=== PATIENT | female | born 1985 | race Caucasian/White ===

== ENCOUNTER 2017-11-22 18:12 | Observation (INO) | payer OTHER ==
[~2017-11-22] VITALS: Ht 154.9 cm; Wt 80.1 kg
[~2017-11-22 18:12] MED LIST: PNV1TABL54 PO
[2017-11-22 22:31] VITALS: BP 112/56
== END 2017-11-22 22:10 | disposition home or self-care (01) ==
LOC: 4S 18:12
PROVIDERS: ADMIT Obstetrics & Gynecology; ATTEND Obstetrics & Gynecology
DX: O48.0 Post-term pregnancy (principal); O26.853 Spotting complicating pregnancy, third trimester; O26.893 Other specified pregnancy related conditions, third trimester; R10.2 Pelvic and perineal pain; Z3A.40 40 weeks gestation of pregnancy
CPT/HCPCS: 59025; G0378

== ENCOUNTER 2017-11-28 17:12 | Inpatient (IN) | payer OTHER ==
[~2017-11-28] VITALS: Ht 154.9 cm; Wt 80.3 kg
[2017-11-28] MEDS ORDERED: RINGERS SOLUTION,LACTATED 1,000 ML IV PRN (17:13)
[2017-11-28] MEDS ORDERED: OXYTOCIN 30 UNITS/LACT RINGERS 500 ML IV ONE (17:13)
[2017-11-28] MEDS ORDERED: CITRIC ACID/SODIUM CITRATE 30 ML SOLUTION UDCUP PO PRN (17:15)
[2017-11-28] MEDS ORDERED: FentaNYL CITRATE-PF 100 MCG/2 ML VIAL IVP PRN (17:15)
[2017-11-28] MEDS ORDERED: METHYLERGONOVINE MALEATE 0.2 MG/ML VIAL IM PRN (17:15)
[2017-11-28] MEDS ORDERED: LIDOCAINE/PF 1% 30 ML VIAL INJ PRN (17:15)
[2017-11-28] MEDS ORDERED: METOCLOPRAMIDE HCL 5 MG/ML 2 ML VIAL IVP PRN (17:15)
[2017-11-28 18:06] VITALS: BP 114/66
[2017-11-28] MEDS: RINGERS SOLUTION,LACTATED 1,000 ML IV SCH (18:13)
[2017-11-28 18:39] LABS: BASOPHILS % (AUTO) 0.5 % (0.0-2.0); EOSINOPHILS % (AUTO) 0.7 % (1.0-6.0); HEMATOCRIT 39.6 % (36-46); HEMOGLOBIN 13.1 g/dL (12.0-16.0); LYMPHOCYTES # (AUTO) 2.2 K/uL (1.0-4.8); LYMPHOCYTES % (AUTO) 17.4 % (22.0-44.0); MEAN CORPUSCULAR HEMOGLOBIN 28.3 pg (26.0-34.0); MEAN CORPUSCULAR HGB CONC 33.2 G/dL (31.0-37.0); MEAN CORPUSCULAR VOLUME 85 fL (80-100); MONOCYTES # (AUTO) 0.8 K/uL (0.1-1.0); MONOCYTES % (AUTO) 6.6 % (2.0-9.0); NEUTROPHILS # (AUTO) 9.7 K/uL (1.8-7.7); NEUTROPHILS % (AUTO) 74.8 % (40.0-70.0); PLATELET COUNT (AUTO) 319 K/uL (150-450); RED BLOOD CELL COUNT(AUTO) 4.65 MIL/uL (4.00-5.20); RED CELL DISTRIBUTION WIDTH 14.5 % (11.5-14.5)
[2017-11-28] MEDS ORDERED: OXYTOCIN 30 UNITS/LACT RINGERS 500 ML IV PRN (18:55)
[2017-11-28] MEDS ORDERED: OXYGEN THERAPY IH SCH (20:00)
[2017-11-29] MEDS: RINGERS SOLUTION,LACTATED 1,000 ML IV SCH ×3 (00:36→11:29)
[2017-11-29] MEDS ORDERED: LIDOCAINE/PF 2% 5 ML VIAL ONE (09:36)
[2017-11-29] MEDS ORDERED: ROPIVACAINE HCL/PF 0.2% 100 ML ED ONE (09:36)
[2017-11-29] MEDS ORDERED: ROPIVACAINE HCL/PF 0.2% 100 ML ED PRN (09:54)
[2017-11-29] MEDS ORDERED: DiphenhydrAMINE HCL 50 MG/ML VIAL IVP PRN (10:00)
[2017-11-29] MEDS ORDERED: NALBUPHINE HCL 10 MG/ML VIAL IVP PRN (10:00)
[2017-11-29] MEDS ORDERED: ONDANSETRON HCL 4 MG/2 ML VIAL IVP PRN (10:00)
[2017-11-29] MEDS ORDERED: CeFAZolin 2 GM/DEXTROSE 50 ML IV ONE (14:30)
[2017-11-29] MEDS ORDERED: BENZOCAINE 20%/MENTHOL 56 GM SPRAY CANISTER TP PRN (14:45)
[2017-11-29] MEDS ORDERED: LANOLIN 7 GM OINTMENT TP PRN (14:45)
[2017-11-29] MEDS ORDERED: GLYCERIN/WITCH HAZEL LEAF 40 PADS JAR TP PRN (14:45)
[2017-11-29] MEDS ORDERED: ACETAMINOPHEN/CODEINE 300-30 MG TABLET PO PRN ×2 (14:45)
[2017-11-29] MEDS: IBUPROFEN 800 MG TABLET PO SCH ×2 (16:11→21:22)
[2017-11-29] MEDS: MAGNESIUM HYDROXIDE SUSPENSION 30 ML UDCUP PO SCH (21:22)
[2017-11-30] MEDS: IBUPROFEN 800 MG TABLET PO SCH ×2 (04:02→09:25)
[2017-11-30] MEDS: MAGNESIUM HYDROXIDE SUSPENSION 30 ML UDCUP PO SCH (09:25)
[2017-11-30] MEDS ORDERED: IBUP-2071 PO (09:45)
[2017-11-30] MEDS ORDERED: SENNA/DOCUSATE SODIUM 187-50 MG TABLET ONE (11:28)
[2017-11-30] MEDS ORDERED: SENNA/DOCUSATE SODIUM 187-50 MG TABLET PO ONE (11:30)
== END 2017-11-30 11:30 | disposition home or self-care (01) | DRG 775 ==
LOC: 4S 17:12 → OBSVTOIN 17:12
PROVIDERS: ADMIT Obstetrics & Gynecology; ATTEND Obstetrics & Gynecology
PROC: 10D07Z6 Extraction of Products of Conception, Vacuum, Via Natural or Artificial Opening (ICD-10-PCS; principal; 2017-11-29)
PROC: 0W8NXZZ Division of Female Perineum, External Approach (ICD-10-PCS; 2017-11-29)
PROC: 3E0R3BZ Introduction of Anesthetic Agent into Spinal Canal, Percutaneous Approach (ICD-10-PCS; 2017-11-29)
PROC: 00HU33Z Insertion of Infusion Device into Spinal Canal, Percutaneous Approach (ICD-10-PCS; 2017-11-29)
DX: O77.0 Labor and delivery complicated by meconium in amniotic fluid (principal); O42.02 Full-term premature rupture of membranes, onset of labor within 24 hours of rupture; Z37.0 Single live birth; Z3A.41 41 weeks gestation of pregnancy
CPT/HCPCS: 86850; 86900; 86901; J0690; J2590; J2795; J3490; J7120